=== PATIENT | male | born 1950 | race Caucasian/White ===

== ENCOUNTER 2021-01-12 04:48 | Day surgery (SDC) | payer OTHER, BC ==
[2021-01-10 15:01] VITALS: BMI 26.9
[2021-01-12 09:58] VITALS: TEMP 100
[2021-01-12 10:25] VITALS: BP 125/72; PULSE 63
== END 2021-01-12 10:52 | disposition home or self-care (01) ==
LOC: JASU-ENDO 04:48
PROVIDERS: ATTEND Internal Medicine Gastroenterology
PROC: 0DB28ZX Excision of Middle Esophagus, Via Natural or Artificial Opening Endoscopic, Diagnostic (ICD-10-PCS; 2021-01-12)
PROC: 0DB78ZX Excision of Stomach, Pylorus, Via Natural or Artificial Opening Endoscopic, Diagnostic (ICD-10-PCS; 2021-01-12)
PROC: 0DBL8ZX Excision of Transverse Colon, Via Natural or Artificial Opening Endoscopic, Diagnostic (ICD-10-PCS; principal; 2021-01-12 09:27)
DX: Z12.11 Encounter for screening for malignant neoplasm of colon (principal); Z86.010 Personal history of colon polyps; K63.5 Polyp of colon; K29.50 Unspecified chronic gastritis without bleeding; B96.81 Helicobacter pylori [H. pylori] as the cause of diseases classified elsewhere; R12 Heartburn
CPT/HCPCS: 88305-TC; 88342-TC